=== PATIENT | female | born 1955 | race Caucasian/White ===

== ENCOUNTER 2016-10-23 15:32 | Emergency (ER) | payer OTHER ==
[~2016-10-23 15:32] MED LIST: ALBUTEROL INHALER INH; AMOXICILLIN500 MG PO; COLACE 100MG C100 MG PO; CYMBALTA60 MG PO; FORTAMET500 MG PO; GLYCOTROL CAPS1 EACH PO; HYDROCHLOROTH12.5 M1 PO; LOSARTAN POTASS50 MG PO; LOVENOX SY30 MG/0.3 SQ; LOVENOX SY40 MG/0.4 SQ; LYRICA200 MG PO; MOBIC15 MG PO; NAFCILLIN2 GM/100 M IV; NARCAN; NUVIGIL150 MG PO; PERCOCET 5-3251 EACH PO; PERCOCET 7.5-31 EACH PO; PRAVACHOL20 MG PO; SYNTHROID 100100 MCG PO; VIT B 12 IM; VIT D3 PO; VITAMIN B-1000 MCG/M IM; VITAMIN B-121000 MC2 SL; VITAMIN D35000 UNI1 PO; VOLTAREN100 GM TOP; ZANAFLEX4 M1 PO; ZYRTEC10 M3 PO; [UNRECOGNIZED DRUG - OTHER] PO; vit b12 PO
[2016-10-23 19:57] LABS: HEMOGLOBIN 11.5 gm/dl (12.3-15.3); RED BLOOD COUNT 4.07 M/UL (4.00-5.10)
== END 2016-10-23 21:50 | disposition home or self-care (01) ==
LOC: ER1 15:32
PROVIDERS: Emergency Medicine
DX: R23.8 Other skin changes (principal); E11.9 Type 2 diabetes mellitus without complications; E78.5 Hyperlipidemia, unspecified; I10 Essential (primary) hypertension; Z90.49 Acquired absence of other specified parts of digestive tract; Z79.899 Other long term (current) drug therapy
CPT/HCPCS: 36415; 80048; 85025; 87040; 96372; 99283; J1040; Q0163

== ENCOUNTER → 2016-10-29 | Outpatient (CLI) | payer OTHER ==
[~2016-10-29] VITALS: Ht 167.6 cm; Wt 98.9 kg
[~2016-10-29] MED LIST changes: +FERROUS SULFAT325 MG PO; +FOLIC ACID1 MG PO; +PERCOCET 10-321 EACH PO; +POTASSIUM CHLO10 ME2 PO; +SINGULAIR10 MG PO; +VITAMIN D5000 UNIT PO
== END ==
LOC: OPSV 12:00
DX: T84.53XA Infection and inflammatory reaction due to internal right knee prosthesis, initial encounter (principal)
CPT/HCPCS: 96365; G0463; J0690; J2997

== ENCOUNTER → 2016-11-26 | Outpatient (CLI) | payer OTHER | LOC: OPSV 13:00 | DX: T84.54XD Infection and inflammatory reaction due to internal left knee prosthesis, subsequent encounter (principal) | CPT/HCPCS: G0463 ==

== ENCOUNTER → 2016-12-11 | Outpatient (CLI) | payer OTHER | LOC: OPSV 11:00 | DX: T84.53XA Infection and inflammatory reaction due to internal right knee prosthesis, initial encounter (principal) | CPT/HCPCS: G0463 ==

== ENCOUNTER → 2016-12-24 | Outpatient (CLI) | payer OTHER | LOC: OPSV 13:00 | DX: T84.53XA Infection and inflammatory reaction due to internal right knee prosthesis, initial encounter (principal) | CPT/HCPCS: G0463 ==

== ENCOUNTER → 2017-01-05 | Outpatient (CLI) | payer OTHER ==
[2017-01-05 09:38] LABS: HEMOGLOBIN 12.6 gm/dl (12.3-15.3); RED BLOOD COUNT 4.43 M/UL (4.00-5.10); WHITE BLOOD COUNT 8.3 K/UL (4.5-11.0)
== END ==
LOC: OPSV2 08:30
PROVIDERS: Orthopaedic Surgery
DX: Z01.812 Encounter for preprocedural laboratory examination (principal); Z01.810 Encounter for preprocedural cardiovascular examination; T84.53XA Infection and inflammatory reaction due to internal right knee prosthesis, initial encounter
CPT/HCPCS: 36415; 80048; 81001; 85025; 93005

== ENCOUNTER → 2017-01-10 | Outpatient (CLI) | payer OTHER | LOC: LAB 12:13 | DX: Z01.812 Encounter for preprocedural laboratory examination (principal); T84.53XA Infection and inflammatory reaction due to internal right knee prosthesis, initial encounter | CPT/HCPCS: 36415; 80051; 82565; 84520; 86850; 86900; 86901 ==

== ENCOUNTER 2017-01-11 10:15 | Inpatient (IN) | payer OTHER ==
[~2017-01-11] VITALS: Ht 167.6 cm; Wt 98.9 kg
[~2017-01-11 10:15] MED LIST changes: -FERROUS SULFAT325 MG PO; -FOLIC ACID1 MG PO; -PERCOCET 10-321 EACH PO; -POTASSIUM CHLO10 ME2 PO; -SINGULAIR10 MG PO; -VITAMIN D5000 UNIT PO
[2017-01-11] MEDS ORDERED: NUVIGIL150 MG PO (11:23)
[2017-01-11] MEDS ORDERED: HYDROCHLOROTH12.5 M1 PO (11:24)
[2017-01-11] MEDS ORDERED: MOBIC15 MG PO (11:24)
[2017-01-11] MEDS ORDERED: FOLIC ACID1 MG PO (11:25)
[2017-01-11] MEDS ORDERED: POTASSIUM CHLO10 ME2 PO (11:26)
[2017-01-11] MEDS ORDERED: SINGULAIR10 MG PO (11:27)
[2017-01-12 04:23] LABS: RED BLOOD COUNT 3.45 M/UL (4.00-5.10); WHITE BLOOD COUNT 9.9 K/UL (4.5-11.0)
[2017-01-12 04:34] LABS: HEMOGLOBIN 9.8 gm/dl (12.3-15.3)
[2017-01-12 04:39] LABS: BUN/CREATININE RATIO 27 (0-10)
[2017-01-13 06:03] LABS: HEMOGLOBIN 9.4 gm/dl (12.3-15.3); RED BLOOD COUNT 3.25 M/UL (4.00-5.10); WHITE BLOOD COUNT 10.6 K/UL (4.5-11.0)
--- NOTE | 2017-01-13 23:30 | NUR ---
REPORT FROM DELPHINE WILSON. PT. APPEARING TO REST QUITELY. NO DISTRESS NOTED.
[2017-01-14 04:49] LABS: HEMOGLOBIN 8.7 gm/dl (12.3-15.3); RED BLOOD COUNT 3.05 M/UL (4.00-5.10); WHITE BLOOD COUNT 12.3 K/UL (4.5-11.0)
[2017-01-15 05:25] LABS: HEMOGLOBIN 8.4 gm/dl (12.3-15.3); RED BLOOD COUNT 2.96 M/UL (4.00-5.10); WHITE BLOOD COUNT 11.3 K/UL (4.5-11.0)
[2017-01-15] MEDS ORDERED: LOVENOX SY40 MG/0.4 SQ (13:28)
[2017-01-15] MEDS ORDERED: FERROUS SULFAT325 MG PO (13:42)
[2017-01-15] MEDS ORDERED: PERCOCET 10-321 EACH PO (14:09)
[2017-01-15] MEDS ORDERED: VITAMIN D5000 UNIT PO (14:10)
== END 2017-01-15 16:18 | disposition home health service (06) | DRG 467 ==
LOC: M/S 10:15 → ZOBSOF 10:23 → M/S 10:23
PROVIDERS: Internal Medicine Infectious Disease; ADMIT Orthopaedic Surgery
PROC: 0SPC08Z Removal of Spacer from Right Knee Joint, Open Approach (ICD-10-PCS; principal; 2017-01-12)
PROC: 0SRC0J9 Replacement of Right Knee Joint with Synthetic Substitute, Cemented, Open Approach (ICD-10-PCS; principal; 2017-01-12)
DX: Z47.33 Aftercare following explantation of knee joint prosthesis (principal); J98.11 Atelectasis; D62 Acute posthemorrhagic anemia; G61.0 Guillain-Barre syndrome; E11.9 Type 2 diabetes mellitus without complications; I10 Essential (primary) hypertension; E03.9 Hypothyroidism, unspecified; E78.5 Hyperlipidemia, unspecified; K21.9 Gastro-esophageal reflux disease without esophagitis; Z88.5 Allergy status to narcotic agent; Z88.3 Allergy status to other anti-infective agents; Z79.84 Long term (current) use of oral hypoglycemic drugs; Z79.899 Other long term (current) drug therapy; M79.7 Fibromyalgia; G47.33 Obstructive sleep apnea (adult) (pediatric); Z99.81 Dependence on supplemental oxygen; F41.9 Anxiety disorder, unspecified; F32.9 Major depressive disorder, single episode, unspecified; Z82.3 Family history of stroke; Z83.3 Family history of diabetes mellitus; Z80.9 Family history of malignant neoplasm, unspecified
CPT/HCPCS: 36415; 73560; 80048; 80053; 82945; 82962; 83036; 84443; 85027; 87205; 97110; 97116; 97530; 97535; C1776; J0690; J1650; J2250; J2370; J2405; J2550; J2710; J2795; J3260; J3370; J7030; J7120

== ENCOUNTER → 2017-01-22 | Outpatient (CLI) | payer OTHER ==
[~2017-01-22] MED LIST changes: +FERROUS SULFAT325 MG PO; +FOLIC ACID1 MG PO; +PERCOCET 10-321 EACH PO; +POTASSIUM CHLO10 ME2 PO; +SINGULAIR10 MG PO; +VITAMIN D5000 UNIT PO
== END ==
LOC: OPSV 10:59
DX: S81.001A Unspecified open wound, right knee, initial encounter (principal)
CPT/HCPCS: G0463

== ENCOUNTER → 2021-03-25 | Outpatient (CLI) | payer BC, MEDICAID ==
[~2021-03-25] MED LIST changes: +BUSPIRONE HCL5 MG PO; +COZAAR50 MG PO; +FEBUXOSTAT40 MG PO; +HYDROCHLOROTH12.5 MG PO; +LEVOTHYROXINE88 MC1 PO; +METFORMIN HCL500 M2 PO; +OMEPRAZOLE40 MG PO; +POTASSIUM CHLO10 ME1 PO; +VITAMIN D350 MC3 PO
[2021-03-25 10:27] LABS: HEMOGLOBIN 12.7 gm/dl (12.3-15.3); RED BLOOD COUNT 4.57 M/UL (4.00-5.10); WHITE BLOOD COUNT 7.8 K/UL (4.5-11.0)
== END ==
LOC: OPSV2 09:00
PROVIDERS: Orthopaedic Surgery
DX: Z01.818 Encounter for other preprocedural examination (principal)
CPT/HCPCS: 36415; 71046; 80048; 85025; 93005